=== PATIENT | male | born 1970 | race Hispanic/Latino ===

== ENCOUNTER 2017-07-07 09:36 | Day surgery (SDC) | payer MEDICARE ==
[~2017-07-07] VITALS: Ht 177.8 cm; Wt 90.7 kg
[~2017-07-07 09:36] MED LIST: MUPI22O TP; SODIUM CHLORIDE 0.9% 1000ML 1,000 ML IV ONE
[2017-07-07 09:58] VITALS: BP 115/77
[2017-07-07] MEDS ORDERED: PROPOFOL 10 MG/ML 20ML VIAL IV ONE (11:42)
[2017-07-07] MEDS ORDERED: GLYCOPYRROLATE 0.2 MG/ML 5 ML VIAL ONE (11:42)
[2017-07-07 11:57] VITALS: BP 93/56
== END 2017-07-07 13:00 | disposition home or self-care (01) ==
LOC: DAH 09:36
PROVIDERS: ATTEND Internal Medicine Gastroenterology
DX: K94.23 Gastrostomy malfunction (principal); Z98.890 Other specified postprocedural states; Z90.49 Acquired absence of other specified parts of digestive tract
CPT/HCPCS: 43246; A4606; J2704; J3490; J7030

== ENCOUNTER 2019-05-22 07:55 | Day surgery (SDC) | payer MEDICARE ==
[~2019-05-22] VITALS: Ht 177.8 cm; Wt 90.7 kg
[2019-05-22 08:25] VITALS: BP 138/89
[2019-05-22] MEDS ORDERED: PROPOFOL 10 MG/ML 20ML VIAL IV ONE (08:51)
[2019-05-22 09:08] VITALS: BP 118/60
[2019-05-22 09:13] VITALS: BP 119/68
[2019-05-22 09:18] VITALS: BP 125/72
[2019-05-22 09:28] VITALS: BP 119/77
[2019-05-22 09:38] VITALS: BP 127/80
== END 2019-05-22 09:40 | disposition home or self-care (01) ==
LOC: ENDO 07:55 → DAH 07:55 → ENDO 09:40
PROVIDERS: ATTEND Internal Medicine Gastroenterology
DX: K94.23 Gastrostomy malfunction (principal); I69.351 Hemiplegia and hemiparesis following cerebral infarction affecting right dominant side; Z79.899 Other long term (current) drug therapy; Z98.890 Other specified postprocedural states; Z80.0 Family history of malignant neoplasm of digestive organs
CPT/HCPCS: 43246; A4215; A4221; A4222; A4223; A4606; A4620; A4663; J2704; J7030

== ENCOUNTER 2019-06-18 08:21 | Day surgery (SDC) | payer MEDICARE ==
[2019-06-18] VITALS (8 sets, daily range): BP systolic 88–125; BP diastolic 56–83
[~2019-06-18] VITALS: Ht 180.3 cm; Wt 90.7 kg
[~2019-06-18 08:21] MED LIST changes: +METR160G TP
[2019-06-18] MEDS ORDERED: IPRATROPIUM/ALBUTEROL SULFATE 3 ML SOLUTION IH ONE (08:52)
[2019-06-18] MEDS ORDERED: PROPOFOL 10 MG/ML 20ML VIAL IV ONE (09:09)
== END 2019-06-18 10:00 | disposition home or self-care (01) ==
LOC: DAH 08:21 → ENDO 08:21
PROVIDERS: ATTEND Internal Medicine
DX: Z12.11 Encounter for screening for malignant neoplasm of colon (principal); K63.89 Other specified diseases of intestine; G81.90 Hemiplegia, unspecified affecting unspecified side; Z79.899 Other long term (current) drug therapy; Z87.891 Personal history of nicotine dependence; Z93.1 Gastrostomy status; Z82.3 Family history of stroke; Z82.49 Family history of ischemic heart disease and other diseases of the circulatory system; Z80.0 Family history of malignant neoplasm of digestive organs; Z83.3 Family history of diabetes mellitus
CPT/HCPCS: 94640; A4215; A4221; A4222; A4223; A4606; A4615; A4663; G0105; J2704; J7030; 45378

== ENCOUNTER 2019-06-19 07:51 | Day surgery (SDC) | payer MEDICARE ==
[~2019-06-19] VITALS: Ht 175.3 cm; Wt 90.7 kg
[2019-06-19 09:45] VITALS: BP 101/75
[2019-06-19] MEDS ORDERED: PROPOFOL 10 MG/ML 20ML VIAL IV ONE (11:19)
[2019-06-19 11:47] VITALS: BP 112/70
[2019-06-19 11:52] VITALS: BP 115/73
[2019-06-19 11:57] VITALS: BP 114/70
== END 2019-06-19 12:20 | disposition home or self-care (01) ==
LOC: DAH 07:51 → ENDO 07:51
PROVIDERS: ATTEND Internal Medicine Gastroenterology
DX: Z12.11 Encounter for screening for malignant neoplasm of colon (principal); K63.89 Other specified diseases of intestine; Z79.899 Other long term (current) drug therapy; Z93.1 Gastrostomy status; Z87.891 Personal history of nicotine dependence; G81.91 Hemiplegia, unspecified affecting right dominant side; Z80.0 Family history of malignant neoplasm of digestive organs; Z82.49 Family history of ischemic heart disease and other diseases of the circulatory system; Z83.3 Family history of diabetes mellitus; Z82.3 Family history of stroke
CPT/HCPCS: A4215; A4221; A4222; A4223; A4606; A4615; A4663; G0105; J2704; J7030; G0121

== ENCOUNTER → 2019-11-25 | Outpatient (CLI) | payer MEDICARE | END | disposition home or self-care (01) | LOC: RAH 09:49 | PROVIDERS: ATTEND Internal Medicine Gastroenterology | DX: K94.20 Gastrostomy complication, unspecified (principal) ==